=== PATIENT | male | born 1995 | race Caucasian/White ===

== ENCOUNTER 2018-05-14 02:46 | Emergency (ER) | payer OTHER, MEDICAID ==
[~2018-05-14] VITALS: Ht 175.3 cm; Wt 63.6 kg
[2018-05-14 03:02] VITALS: Ht 175.3 cm; Wt 63.6 kg
[2018-05-14 04:42] LABS: HIV 1 & 2- RAPID SCREEN NEGATIVE (NEGATIVE)
[2018-05-14] MEDS ORDERED: AUGMENTIN 875-11 TAB PO (05:26)
[2018-05-14] MEDS ORDERED: NORCO 7.5/325 T1 TA1 PO (05:26)
[2018-05-14 10:54] VITALS: BP 124/83
[2018-05-15 17:14] LABS: HEPATITIS C ANTIBODY <0.1 (0.0-0.9)
== END 2018-05-14 10:56 | disposition home or self-care (01) ==
LOC: D.ER 02:46
PROVIDERS: Family Medicine
DX: S01.02XA Laceration with foreign body of scalp, initial encounter (principal); Y04.2XXA Assault by strike against or bumped into by another person, initial encounter; Y93.89 Activity, other specified; Y92.89 Other specified places as the place of occurrence of the external cause; S06.0X9A Concussion with loss of consciousness of unspecified duration, initial encounter; R51 Headache